=== PATIENT | female | born 1960 | race Caucasian/White ===

== ENCOUNTER 2017-01-29 07:19 | Emergency (ER) | payer OTHER ==
[~2017-01-29] VITALS: Ht 152.4 cm; Wt 92.5 kg
[2017-01-29 07:19] VITALS: BP 137/75
== END 2017-01-29 08:49 | disposition home or self-care (01) ==
LOC: ER 07:23
DX: S99.912A Unspecified injury of left ankle, initial encounter (principal); X58.XXXA Exposure to other specified factors, initial encounter; Y93.89 Activity, other specified; Y92.89 Other specified places as the place of occurrence of the external cause; Y99.9 Unspecified external cause status
CPT/HCPCS: 73610; 99284; A4606; Z7610

== ENCOUNTER 2017-08-03 11:24 | Emergency (ER) | payer OTHER ==
[~2017-08-03] VITALS: Ht 154.9 cm; Wt 63.5 kg
[2017-08-03 13:00] VITALS: BP 124/68
[2017-08-03] MEDS ORDERED: ACETAMINOPHEN ES 500 MG TABLET ONE (13:28)
[2017-08-03] MEDS: ACETAMINOPHEN ES 500 MG TABLET PO ONE ×2 (13:31→13:32)
== END 2017-08-03 13:38 | disposition home or self-care (01) ==
LOC: ER 11:25
DX: H66.92 Otitis media, unspecified, left ear (principal)
CPT/HCPCS: A4606; Z7610